=== PATIENT | female | born 1975 | race Caucasian/White ===

== ENCOUNTER 2016-12-15 06:47 | Emergency (ER) | payer OTHER ==
[2016-12-15 07:26] VITALS: PULSE 68; BMI 33.5
--- NOTE | 2016-12-15 07:49 | PDOC ---
History of Present Illness - General Chief Complaint: Vaginal Bleeding Stated Complaint: 6 wks preg VAGINAL BLEEDING Time Seen by Provider: 12/15/16 07:26 History Source: Patient Exam Limitations: No Limitations - History of Present Illness Travel History: No Initial Comments: 12/15/16 07:34 41-year-old female approximately 6 weeks presents with vaginal spotting since this morning. Patient states did a urine test at the clinic at [address] [place] [address] and was told she was and has a first consultation next week but states has not had an ultrasound or any [facility] consultation. Patient states also has mid suprapubic cramping without low back pain, dysuria, diarrhea but states some constipation since onset of . Patient denies fever, chills, nausea or abdominal distention. Timing/Duration: reports: intermittent Quality: reports: mild, cramping Abdominal Pain Onset Location: reports: suprapubic Pain Radiation: reports: no radiation Activities at Onset: reports: none Aggravating Factors: improves with: Voiding Alleviating Factors: improves with: None Past History - Travel Traveled outside of the country in the last 30 days: No Close contact w/someone who was outside of country & ill: No - Past Medical History Allergies/Adverse Reactions: Allergies Allergy/AdvReac Type Severity Reaction Status Date / Time No Known Allergies Allergy Verified 12/15/16 07:19 Anemia: Yes (HX OF ANEMIA) Asthma: No Cancer: No Cardiac Disorders: No CVA: No COPD: No CHF: No Dementia: No Diabetes: No GI Disorders: No Disorders: No HTN: No Hypercholesterolemia: No Liver Disease: No Seizures: No Thyroid Disease: No - Surgical History Abdominal Surgery: Yes (solo malone) - Psycho/Social/Smoking Cessation Hx Anxiety: No Suicidal Ideation: No Smoking History: Never smoked Information on smoking cessation initiated: No Hx Alcohol Use: No Drug/Substance Use Hx: No Substance Use Type: Alcohol Hx Substance Use Treatment: No Patient Lives Alone: No Lives with/in: spouse/SO Review of Systems - Review of Systems Able to Perform ROS?: Yes Constitutional: No: Symptoms Reported HEENTM: No: Throat Pain Respiratory: No: Cough Cardiac (ROS): No: Chest Pain ABD/GI: Yes: Constipated, Abdominal cramping : Yes: Discharge (vaginal spotting) Musculoskeletal: No: Symptoms Reported Integumentary: No: Symptoms Reported *Physical Exam - Vital Signs Last Vital Signs Temp Pulse Resp BP Pulse Ox 98.0 F 68 18 104/63 100 12/15/16 07:20 12/15/16 07:20 12/15/16 07:20 12/15/16 07:20 12/15/16 07:20 - Physical Exam General Appearance: Yes: Nourished, Appropriately Dressed HEENT: positive: EOMI, KAMLA. negative: Pale Conjunctivae Neck: positive: Supple Respiratory/Chest: positive: Lungs Clear, Normal Breath Sounds. negative: Respiratory Distress, Accessory Muscle Use Cardiovascular: positive: Regular Rhythm, Regular Rate. negative: Murmur Female Pelvic Exam: positive: normal external exam, cervical os closed, normal adnexa, vaginal bleeding (scant vieira). negative: CMT, adnexal tenderness Gastrointestinal/Abdominal: positive: Normal Bowel Sounds, Soft, Tenderness ( midsuprapubic). negative: Distended Musculoskeletal: negative: Normal Inspection Extremity: negative: Normal Capillary Refill Integumentary: positive: Normal Color, Warm, Moist ED Treatment Course - LABORATORY CBC & Chemistry Diagram: 12/15/16 07:42 12/15/16 07:42 - RADIOLOGY Radiology Studies Ordered: Category Date Time Status TRANSVAGINAL US PREG [US] Stat Ultrasound 12/15/16 07:44 Ordered Medical Decision Making - Medical Decision Making 12/15/16 07:51 Patient +6 weeks presenting with vaginal spotting intermittently since this morning. Patient on exam had mild mid suprapubic tenderness without adnexal tenderness. Patient also with scant vieira discharge noted in vaginal vault. Patient for type and screen, CBC, comp, beta hCG, urine urine culture, and ultrasound. 12/15/16 08:48 Laboratory Tests 12/15/16 12/15/16 12/15/16 07:42 07:42 07:42 WBC 7.8 Hgb 11.5 Hct 34.6 Neutrophils % 55.1 Sodium 138 Potassium 4.1 Chloride 107 Carbon Dioxide 19 L D Anion Gap 12 BUN 14 D Creatinine 0.5 L Creat Clearance w eGFR > 60 Random Glucose 140 H D Calcium 8.6 Total Bilirubin 0.3 D AST 12 L ALT 15 Albumin 3.3 L Beta HCG, Quant 48665.3 Urine Ketones Negative Urine Blood 2+ H Ur Leukocyte Esterase Trace H Urine WBC 2 12/15/16 09:49 Ultrasound demonstrates a single viable intrauterine gestation approximately at 6 weeks 0 days. heart rate measuring 124 beats per minute. There is no subchorionic implantation bleed seen. There is noted uterine soft tissue foci 3 with the most prominent one measuring 3 cm in diameter suggestive of leimyomas. The ovaries appear unremarkable. Obvious adnexal pathology. There is no free intraperitoneal fluid seen. Patient be discharged home to follow-up with her [facility]. 12/15/16 09:52 Laboratory Tests 12/15/16 07:42 Blood Type O POSITIVE Antibody Screen Negative *DC/Admit/Observation/Transfer Diagnosis at time of Disposition: Vaginal bleeding in Qualifiers: Trimester: first trimester Qualified Code(s): O46.91 - Antepartum hemorrhage, unspecified, first trimester Fibroid Qualifiers: Uterine leiomyoma location: intramural Qualified Code(s): D25.1 - Intramural leiomyoma of uterus - Discharge Dispostion Disposition: HOME Condition at time of disposition: Good - Referrals Referrals: Viola Rodrigues MD [Primary Care Provider] - - Patient Instructions Printed Discharge Instructions: DI for Vaginal Bleeding During Additional Instructions: Please follow-up with your [facility] specialist next week and bring copy of your labs and ultrasound with you. May take Tylenol for discomfort. Drink plenty of fluids. Return to ED if symptoms worsen.
[2016-12-15 07:59] LABS: BASOPHIL 0.6 % (0-2.0); EOSINOPHIL 1.3 % (0-4.5); MCH 28.1 pg (25.7-33.7); MCHC 33.2 g/dl (32.0-36.0); MEAN CELL VOLUME 84.4 fl (80-96); MEAN PLT VOLUME 7.9 fl (7.5-11.1); NEUTROPHILS 55.1 % (42.8-82.8); PLATELET COUNT 269 K/MM3 (134-434); RDW 15.3 % (11.6-15.6); WHITE BLOOD COUNT 7.8 K/mm3 (4.0-10.0)
[2016-12-15 08:00] LABS: URINE APPEARANCE SLCLOUDY; URINE BILIRUBIN NEGATIVE (NEGATIVE); URINE COLOR YELLOW; URINE GLUCOSE (UA) NEGATIVE (NEGATIVE); URINE KETONE NEGATIVE (NEGATIVE); URINE NITRITE NEGATIVE (NEGATIVE); URINE PROTEIN NEGATIVE (NEGATIVE); URINE UROBILINOGEN NEGATIVE E.U./dl (0.2-1.0)
--- NOTE | 2016-12-15 08:08 | PDOC ---
*Physical Exam - Vital Signs Last Vital Signs Temp Pulse Resp BP Pulse Ox 98.0 F 68 18 104/63 100 12/15/16 07:20 12/15/16 07:20 12/15/16 07:20 12/15/16 07:20 12/15/16 07:20 ED Treatment Course - LABORATORY CBC & Chemistry Diagram: 12/15/16 07:42 12/15/16 07:42 Medical Decision Making - Medical Decision Making 12/15/16 08:08 Pt seen by Midlevel Provider under my direct supervision Pt interviewed and examined Ancillary studies reviewed I agree with plan as outlined by Midlevel Provider 12/15/16 09:21 Laboratory Tests 12/15/16 12/15/16 12/15/16 07:42 07:42 07:42 Beta HCG, Quant 23756.3 Urine Nitrite Negative Ur Leukocyte Esterase Trace H Urine RBC <1 Urine WBC 2 Blood Type O POSITIVE
[2016-12-15 08:27] LABS: URINE BLOOD 2+ (NEGATIVE); URINE LEUK ESTERASE TRACE (NEGATIVE)
[2016-12-15 08:28] LABS: ALBUMIN 3.3 g/dl (3.4-5.0); ALK PHOS 101 U/L (45-117); ANION GAP 12 (8-16); BILIRUBIN,TOTAL 0.3 mg/dL (0.2-1.0); CALCIUM 8.6 mg/dL (8.5-10.1); CO2 19 mmol/L (21-32); CREATININE 0.5 mg/dL (0.55-1.02); GLUCOSE,RANDOM 140 mg/dL (74-106); SGOT/AST 12 U/L (15-37); SGPT/ALT 15 U/L (12-78); TOT PROT 7.3 g/dl (6.4-8.2)
[2016-12-15 08:29] LABS: URINE MUCUS RARE; URINE RBC <1 /hpf (0-3); URINE WBC 2 /hpf (3-5)
[2016-12-15 10:00] VITALS: BP 107/74; TEMP 98.2
== END 2016-12-15 10:02 | disposition home or self-care (01) ==
LOC: JER 06:47
DX: O46.91 Antepartum hemorrhage, unspecified, first trimester (principal); O34.11 Maternal care for benign tumor of corpus uteri, first trimester; Z3A.01 Less than 8 weeks gestation of pregnancy
CPT/HCPCS: 36415; 76817-TC; 80053; 81003; 81015; 84702; 85025; 86850; 86900; 86901; 87086; 99282-25

== ENCOUNTER → 2020-07-14 | Day surgery (SDC) | payer OTHER | END | disposition home or self-care (01) | LOC: JRADIR 09:05 → JRADUS-SUR 09:05 | PROVIDERS: ATTEND Obstetrics & Gynecology | DX: Z53.8 Procedure and treatment not carried out for other reasons (principal) | CPT/HCPCS: 84703 ==

== ENCOUNTER → 2020-08-09 | Day surgery (SDC) | payer OTHER | END | disposition home or self-care (01) | LOC: JRADIR 09:51 | PROVIDERS: ATTEND Obstetrics & Gynecology | PROC: BU18YZZ Fluoroscopy of Uterus and Fallopian Tubes using Other Contrast (ICD-10-PCS; principal; 2020-08-09) | DX: N97.9 Female infertility, unspecified (principal) | CPT/HCPCS: 58340; 74740-TC-FY; 76000-TC-FY; 84703 ==

== ENCOUNTER 2020-09-15 04:26 | Day surgery (SDC) | payer OTHER ==
[2020-09-13 11:02] VITALS: BMI 31.8
[2020-09-15 08:25] LABS: CHLORIDE 105 mmol/L (98-107); SODIUM 136 mmol/L (136-145)
[2020-09-15 08:29] LABS: BASO % 0.6 % (0-2.0); HEMOGLOBIN 10.3 GM/dL (10.7-15.3); LYMPH % 43.9 % (8-40); MCH 25.3 pg (25.7-33.7); MCHC 32.2 g/dl (32.0-36.0); MEAN CELL VOLUME 78.6 fl (80-96); MEAN PLT VOLUME 8.4 fl (7.5-11.1); MONO % 8.4 % (3.8-10.2); NEUT % 45.1 % (42.8-82.8); PLATELET COUNT 313 K/MM3 (134-434); RBC 4.07 M/mm3 (3.60-5.2); RDW 18.7 % (11.6-15.6); WHITE BLOOD COUNT 7.1 K/mm3 (4.0-10.0)
[2020-09-15 08:33] LABS: INR 0.94 (0.83-1.09); PROTHROMBIN TIME (PATIENT) 11.6 SEC (9.7-13.0)
[2020-09-15 08:37] LABS: ALBUMIN 3.4 g/dl (3.4-5.0); ANION GAP 7 MMOL/L (8-16); BLOOD UREA NITROGEN 16.4 mg/dL (7-18); CO2 24 mmol/L (21-32); CREATININE 0.6 mg/dL (0.55-1.3); GLUCOSE,RANDOM 146 mg/dL (74-106); SGPT/ALT 14 U/L (13-61)
[2020-09-15 08:38] LABS: BILIRUBIN,TOTAL 0.4 mg/dL (0.2-1); TOT PROT 7.3 g/dl (6.4-8.2)
[2020-09-15 08:39] LABS: ALK PHOS 108 U/L (45-117); CALCIUM 8.7 mg/dL (8.5-10.1)
[2020-09-15 08:40] LABS: SGOT/AST 10 U/L (15-37)
[2020-09-15] MEDS ORDERED: MIDAZOLAM HCL 2 MG/2 ML SINGLE DOSE VIAL ONE (09:45)
[2020-09-15] MEDS ORDERED: PROPOFOL 20 ML ONE ×3 (09:45→11:03)
[2020-09-15] MEDS ORDERED: LIDOCAINE HCL/PF 2% SDV 5ML VIAL ONE (10:28)
[2020-09-15] MEDS ORDERED: ONDANSETRON 4 MG/2 ML VIAL ONE (10:31)
[2020-09-15] MEDS ORDERED: PROMETHAZINE HCL 25 MG/1 ML VIAL IVPUSH PRN (11:29)
[2020-09-15] MEDS ORDERED: ONDANSETRON 4 MG/2 ML VIAL IVPUSH PRN (11:29)
[2020-09-15] MEDS ORDERED: ACETAMINOPHEN INJECTION 100 ML IVPB ONE (19:03)
[2020-09-15] MEDS ORDERED: ACETAMINOPHEN 1000 MG/100 ML VIAL (NON FORMULARY) IVPB ONE (19:23)
[2020-09-15] MEDS: IBUPROFEN 600 MG TABLET (FP) PO PRN (23:35)
[2020-09-16] MEDS ORDERED: FUROSEMIDE 20 MG TABLET (FP) PO ONE (08:30)
[2020-09-16] MEDS: IBUPROFEN 600 MG TABLET (FP) PO PRN (09:07)
[2020-09-16 09:59] LABS: BASO % 0.3 % (0-2.0); EOS % 1.2 % (0-4.5); HEMATOCRIT 28.2 % (32.4-45.2); LYMPH % 33.4 % (8-40); MCH 25.4 pg (25.7-33.7); MCHC 32.1 g/dl (32.0-36.0); MEAN CELL VOLUME 79.2 fl (80-96); MEAN PLT VOLUME 8.5 fl (7.5-11.1); NEUT % 59.1 % (42.8-82.8); PLATELET COUNT 270 K/MM3 (134-434); RBC 3.56 M/mm3 (3.60-5.2); RDW 19.2 % (11.6-15.6); WHITE BLOOD COUNT 9.6 K/mm3 (4.0-10.0)
[2020-09-16] MEDS ORDERED: LORATADINE 10 MG TABLET PO SCH (10:00)
[2020-09-16 10:15] LABS: BLOOD UREA NITROGEN 6.5 mg/dL (7-18); CALCIUM 8.2 mg/dL (8.5-10.1)
[2020-09-16 10:19] LABS: CREATININE 0.6 mg/dL (0.55-1.3)
[2020-09-16 15:01] VITALS: PULSE 93
[2020-09-16 15:09] VITALS: BP 111/60; TEMP 99.1
== END 2020-09-16 18:26 | disposition home or self-care (01) ==
LOC: JASUSAT 04:26 → J6S 19:50 → JASUSAT 09-16 01:30 → J6S 09-16 08:59 → JASUSAT 09-16 18:26
PROVIDERS: ATTEND Obstetrics & Gynecology
PROC: 0UJD8ZZ Inspection of Uterus and Cervix, Via Natural or Artificial Opening Endoscopic (ICD-10-PCS; 2020-09-15)
PROC: 0UB98ZZ Excision of Uterus, Via Natural or Artificial Opening Endoscopic (ICD-10-PCS; principal; 2020-09-15 09:30)
PROC: 0UDB7ZX Extraction of Endometrium, Via Natural or Artificial Opening, Diagnostic (ICD-10-PCS; 2020-09-15 09:30)
DX: N93.8 Other specified abnormal uterine and vaginal bleeding (principal); D25.9 Leiomyoma of uterus, unspecified
CPT/HCPCS: 36415; 71045-TC-FY; 80048; 80053; 84702; 85025; 85610; 86850; 86900; 86901; 88305-TC; 94760; 94761; J0131

== ENCOUNTER 2021-06-07 09:05 | Emergency (ER) | payer OTHER ==
[2021-06-07 09:12] VITALS: BP 128/71; PULSE 83; TEMP 97.8
[2021-06-08 14:12] LABS: SARS-CoV-2 NAA Detected (Not Detected)
== END 2021-06-07 11:23 | disposition home or self-care (01) ==
LOC: JER 09:05
DX: U07.1 COVID-19 (principal); J02.9 Acute pharyngitis, unspecified; R51.9 Headache, unspecified
CPT/HCPCS: 87804; 99283-25; C9803; U0003; U0005

== ENCOUNTER 2022-08-08 15:06 | Emergency (ER) | payer OTHER ==
[2022-08-08 15:14] VITALS: BP 100/66; PULSE 101; RESP 16; TEMP 98.1; BMI 31.6
[2022-08-08 16:25] LABS: BASO % 0.7 % (0-2.0); EOS % 1.5 % (0-4.5); HEMATOCRIT 30.3 % (32.4-45.2); HEMOGLOBIN 9.5 GM/dL (10.7-15.3); LYMPH % 38.2 % (8-40); MCH 23.1 pg (25.7-33.7); MCHC 31.5 g/dl (32.0-36.0); MEAN CELL VOLUME 73.4 fl (80-96); MEAN PLT VOLUME 7.7 fl (7.5-11.1); MONO % 8.4 % (3.8-10.2); NEUT % 51.2 % (42.8-82.8); PLATELET COUNT 339 10^3/uL (134-434); RBC 4.12 M/mm3 (3.60-5.2); RDW 18.2 % (11.6-15.6); WHITE BLOOD COUNT 9.2 K/mm3 (4.0-10.0)
[2022-08-08 16:29] LABS: EPI CELLS 27 /uL (0-25.1); HYALINE CASTS 1 /uL (0-3.1); PH,URINE 5.5 (5.0-8.0); URINE APPEARANCE CLEAR; URINE BACTERIA 116 /uL (0-1359); URINE BILIRUBIN NEGATIVE (NEGATIVE); URINE COLOR YELLOW; URINE GLUCOSE (UA) 2+ (NEGATIVE); URINE KETONE TRACE (NEGATIVE); URINE LEUK ESTERASE NEGATIVE (NEGATIVE); URINE NITRITE NEGATIVE (NEGATIVE); URINE PROTEIN TRACE (NEGATIVE); URINE RBC 92 /uL (0-23.9); URINE WBC 4 /uL (0-25.8)
[2022-08-08 16:43] LABS: CHLORIDE 106 mmol/L (98-107); SODIUM 136 mmol/L (136-145)
[2022-08-08 16:45] LABS: ALBUMIN 3.4 g/dl (3.4-5.0); ANION GAP 5 MMOL/L (8-16); BLOOD UREA NITROGEN 14.8 mg/dL (7-18); CALCIUM 8.9 mg/dL (8.5-10.1); CO2 24 mmol/L (21-32); GLUCOSE,RANDOM 210 mg/dL (74-106)
[2022-08-08 16:48] LABS: CREATININE 0.7 mg/dL (0.55-1.3); SGOT/AST 12 U/L (15-37); SGPT/ALT 17 U/L (13-61)
[2022-08-08 16:50] LABS: BILIRUBIN,TOTAL 0.2 mg/dL (0.2-1); TOT PROT 7.7 g/dl (6.4-8.2)
[2022-08-08 16:51] LABS: ALK PHOS 132 U/L (45-117)
[2022-08-08] MEDS ORDERED: IBUPROFEN 600 MG TABLET (FP) PO ONE ×2 (19:06→19:07)
== END 2022-08-08 19:40 | disposition home or self-care (01) ==
LOC: JERFT 15:06
DX: N93.9 Abnormal uterine and vaginal bleeding, unspecified (principal)
CPT/HCPCS: 36415; 76830-TC; 80053; 81003; 84702; 84703; 85025; 99284-25

== ENCOUNTER 2024-08-07 10:41 | Emergency (ER) | payer OTHER ==
[2024-08-07 11:01] VITALS: BP 102/78; PULSE 92; RESP 18; TEMP 97.7; BMI 27.1
[2024-08-07 11:58] LABS: EPI CELLS 5 /uL (0-25.1); HYALINE CASTS 0 /uL (0-3.1); PH,URINE 5.5 (5.0-8.0); URINE APPEARANCE CLEAR; URINE BACTERIA 37 /uL (0-1359); URINE BILIRUBIN NEGATIVE (NEGATIVE); URINE COLOR YELLOW; URINE GLUCOSE (UA) 3+ (NEGATIVE); URINE KETONE NEGATIVE (NEGATIVE); URINE LEUK ESTERASE NEGATIVE (NEGATIVE); URINE NITRITE NEGATIVE (NEGATIVE); URINE PROTEIN NEGATIVE (NEGATIVE); URINE RBC 38 /uL (0-23.9); URINE UROBILINOGEN 0.2 mg/dL (0.2-1.0); URINE WBC 2 /uL (0-25.8)
== END 2024-08-07 13:08 | disposition home or self-care (01) ==
LOC: JER 10:41
DX: M54.50 Low back pain, unspecified (principal); B37.31 Acute candidiasis of vulva and vagina
CPT/HCPCS: 72100-TC-FY; 81003; 82962; 87070; 87086; 87205; 99284-25